=== PATIENT | female | born 1955 | race Caucasian/White ===

== ENCOUNTER 2024-06-28 10:42 | Emergency (ER) | payer OTHER, MEDICARE ==
[~2024-06-28] VITALS: Ht 160 cm; Wt 79.4 kg
[2024-06-28 11:29] VITALS: BP 124/85; TEMP 98.7
[2024-06-28 12:00] VITALS: O2SAT 99
== END 2024-06-28 12:02 | disposition home or self-care (01) ==
LOC: ER 10:49
DX: M54.9 Dorsalgia, unspecified (principal); Z96.659 Presence of unspecified artificial knee joint; V43.52XA Car driver injured in collision with other type car in traffic accident, initial encounter; Y93.89 Activity, other specified; Y92.488 Other paved roadways as the place of occurrence of the external cause; Y99.8 Other external cause status